=== PATIENT | male | born 1950 | race Caucasian/White ===

== ENCOUNTER 2019-01-06 12:44 | Day surgery (SDC) | payer MEDICARE ==
[2019-01-04 14:08] VITALS: BMI 31.2
[~2019-01-06 12:44] MED LIST: LACTATED RINGERS 1,000 ML IV SCH; LIDOCAINE 1% 20 ML VIAL (10MG/ML) FOR IV START INTRADERMA PRN
[2019-01-06 13:06] VITALS: TEMP 98.1
[2019-01-06] MEDS ORDERED: PROPOFOL 10 MG/ML 20 ML VIAL IV ONE (13:37)
--- NOTE | 2019-01-06 14:24 | P.OP ---
Date of Procedure: 01/06/19 Preoperative Diagnosis: Screening Postoperative Diagnosis: Diverticulosis Redundant colon Procedure(s) Performed: Colonoscopy Surgeon: Britta Engel Condition: stable Disposition: same day Indications for Procedure: 68-year-old male presents for screening colonoscopy. He has never had a colonoscopy previously. He denies any blood in his stool. He denies any recent bowel changes. Operative Findings: Diverticulosis of sigmoid colon Redundant colon Description of Procedure: The patient was brought into the endoscopy suite. The patient was placed in left lateral decubitus position and adequate sedation was achieved using conscious sedation. A digital rectal exam was performed and internal he morrhoids were palpated. An endoscope was in place in the rectum and advanced to the level of the cecum as identified by landmarks including the appendiceal orifice and ileocecal valve. The prep was fair. There was notable stool buildup in the right colon. The colonoscope was then slowly withdrawn, examining for any mucosal abnormalities. The cecum, ascending, transverse, descending and sigmoid colon were visualized adequately. There were no obvious large neoplastic lesions. There were no obvious inflammatory change diverticulosis was noted to be scattered throughout the sigmoid colon. The colon was also noted to be redundant. Retroflexion was performed in the rectum and internal hemorrhoids were visible. Excess air was removed, the colonoscope withdrawn and the procedure terminated. The patient was then transferred to the recovery unit in stable condition. Repeat colonoscopy performed in 1-3 years due to fair prep.
[2019-01-06 14:26] VITALS: RESP 16
[2019-01-06 14:44] VITALS: BP 119/73; PULSE 51
== END 2019-01-06 15:35 | disposition home or self-care (01) ==
LOC: ORWHC2ENDO 12:44
PROVIDERS: ATTEND Surgery
DX: Z12.11 Encounter for screening for malignant neoplasm of colon (principal); Q43.8 Other specified congenital malformations of intestine; K64.8 Other hemorrhoids; I10 Essential (primary) hypertension; Z79.899 Other long term (current) drug therapy; Z90.89 Acquired absence of other organs; Z98.890 Other specified postprocedural states
CPT/HCPCS: J2704; G0121

== ENCOUNTER → 2021-10-08 | Outpatient (CLI) | payer MEDICARE | END | disposition home or self-care (01) | LOC: RADECHMAIN 11:36 | PROVIDERS: ATTEND Family Medicine | DX: R00.2 Palpitations (principal) | CPT/HCPCS: 93270 ==